=== PATIENT | female | born 1985 | race African-American/Black ===

== ENCOUNTER 2021-03-11 02:48 | Emergency (ER) | payer OTHER, MEDICAID ==
[~2021-03-11] VITALS: Ht 157.5 cm; Wt 85.0 kg
[2021-03-11 03:02] VITALS: BP 137/101
[2021-03-11] MEDS ORDERED: IBUP-2029 PO (03:34)
[2021-03-11] MEDS ORDERED: IBUPROFEN 600MG TABLET PO NR (04:00)
== END 2021-03-11 04:22 ==
LOC: ER 03:57 → EDBD 03:57 → ER 04:22
DX: S40.022A Contusion of left upper arm, initial encounter (principal); F31.9 Bipolar disorder, unspecified; M79.18 Myalgia, other site; X58.XXXA Exposure to other specified factors, initial encounter; Y93.89 Activity, other specified; Y92.89 Other specified places as the place of occurrence of the external cause; Y99.8 Other external cause status; Z98.890 Other specified postprocedural states
CPT/HCPCS: 99283